=== PATIENT | male | born 1990 | race Caucasian/White ===

== ENCOUNTER 2019-09-02 08:46 | Emergency (ER) | payer OTHER ==
[~2019-09-02] VITALS: Ht 177.8 cm; Wt 68.0 kg
[~2019-09-02 08:46] MED LIST: ACET500 PO; CODACE30 PO; IBU400 MG PO; IBUPROFEN200 MG PO; Rocephin 1g1 G/50 ML IV
[2019-09-02] MEDS ORDERED: IBUP600 PO (10:30)
[2019-09-02] MEDS ORDERED: Robaxin-750750 MG PO (10:30)
[2019-09-02] MEDS ORDERED: LIDO700A20 TOP (10:30)
== END 2019-09-02 10:50 | disposition home or self-care (01) ==
LOC: ER 08:46
DX: M25.512 Pain in left shoulder (principal)
CPT/HCPCS: 99283; A9270-GY